=== PATIENT | female | born 1940 | race Caucasian/White ===

== ENCOUNTER → 2016-08-15 | Outpatient (CLI) | payer MEDICARE, OTHER | LOC: MW.CHIM 09:53 | CPT/HCPCS: 93005; 99204 ==

== ENCOUNTER → 2016-08-18 | Outpatient (CLI) | payer MEDICARE, OTHER | LOC: MW.CHIM 08:00 | CPT/HCPCS: G0463 ==

== ENCOUNTER 2017-07-04 07:23 | Day surgery (SDC) | payer MEDICARE, OTHER ==
--- NOTE | 2017-07-03 17:27 | PCM.HPR ---
H & P Addendum review - H & P Addendum Review Date of Original H & P: 06/28/17 Date Reviewed: 07/04/17 Time Reviewed: 09:00 Patient was Examined: No Changes (I reviewed the GAME MODERATOR and tympanogram and discussed with the patient that the only benefits she will obtain from tympanostomy tubes would be:1. relief of extreme ME negative pressure - especially since she will be doing air travel later this week 2. Some improvement in L ear hearing; majority of hearing loss is SNHL. She decided for tubes bilateral)
[2017-07-04] MEDS ORDERED: Midazolam 1 MG/ML 2 ML SDV ONE (07:32)
[2017-07-04] MEDS ORDERED: Ondansetron 4 MG/2 ML SDV ONE (07:32)
[2017-07-04] MEDS ORDERED: Propofol 200 MG/20 ML SDV ONE ×2 (07:32→09:30)
[2017-07-04] MEDS ORDERED: fentaNYL 100 MCG/2 ML SDV ONE (07:32)
--- NOTE | 2017-07-04 08:47 | PCM.PREANE ---
Preanesthetic Assessment - Anesthesia/Transfusion/Family Hx Anesthesia History: Prior Anesthesia Without Reaction Family History of Anesthesia Reaction: No Transfusion History: No Prior Transfusion(s) - Review of Systems General: No Symptoms Pulmonary: No Symptoms Cardiovascular: No Symptoms Gastrointestinal: No Symptoms Neurological: No Symptoms Other: Reports: None - Physical Assessment NPO Status Date: 07/03/17 O2 Sat by Pulse Oximetry: 94 Respiratory Rate: 12 Vital Signs: Last Vital Signs Temp 36.6 C 07/04/17 08:18 Pulse 70 07/04/17 08:18 Resp 12 07/04/17 08:18 BP 110/72 07/04/17 08:18 Pulse Ox 94 L 07/04/17 08:18 Height: 1.5 m Weight: 57.153 kg ASA Class: 2 Mental Status: Alert & Oriented x3 Airway Class: Mallampati = 2 Dentition: Reports: Dentures (upper) ROM/Head Extension: Full Lungs: Clear to Auscultation, Normal Respiratory Effort Cardiovascular: Regular Rhythm - Allergies Allergies/Adverse Reactions: Allergies Allergy/AdvReac Type Severity Reaction Status Date / Time No Known Allergies Allergy Verified 07/02/17 09:45 - Anesthesia Plan Pre-Op Medication Ordered: None - Acknowledgements Anesthesia Type Planned: General Anesthesia Pt an Appropriate Candidate for the Planned Anesthesia: Yes Alternatives and Risks of Anesthesia Discussed w Pt/Guardian: Yes Pt/Guardian Understands and Agrees with Anesthesia Plan: Yes Additional Comments: has pacemaker for unknown etiology (irregular rate per pt). No records on pacemaker in our EMR. pacemaker provisioning analyst called, they are unable to tell me if rate responsive feature was turned on. Will treat wit magnet to put paced into asyncronous mode during surgery. No need for post procedure interrigation. Last battery life check of pacer was last week. 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: Musculoskeletal History: Reports: Fracture Other Musculoskeletal History: hx fx arm and ankle Neurological History: Reports: None Endocrine/Metabolic History: Reports: Hypothyroidism, Osteopenia Oncologic (Cancer) History: Reports: Cervix Dermatologic History: Reports: None - Past Surgical History Head Surgeries/Procedures: Reports: None HEENT Surgical History: Reports: Cataract Surgery Female Surgical History: Reports: Hysterectomy, Salpingo-Oophorectomy, Tubal Ligation - SUBSTANCE USE Smoking Status *Q: Former Smoker Tobacco Use Within Last Twelve Months: No Second Hand Smoke Exposure: No Days Per Week of Alcohol Use: 0 Number of Drinks Per Day: 1 Total Drinks Per Week: 0 Recreational Drug Use History: No - HOME MEDS Home Medications: Home Meds Aspirin [Kirit Chewable Aspirin] 2 tab PO DAILY 03/06/14 [History] Hydrochlorothiazide 1 tab PO DAILY 03/06/14 [History] Levothyroxine Sodium [Synthroid] 150 mcg PO DAILY 03/06/14 [History] Lutein/Minerals/Vit A,C & E [I-Chani] 1 tab PO DAILY 03/06/14 [History] Metoprolol Succinate [Toprol XL 50mg] 25 mg PO DAILY 03/06/14 [History] Multivitamin [Multi-Vitamin Daily] 1 tab PO DAILY 03/06/14 [History] [place]-3/DHA/Epa/Fish Oil [Fish Oil 500 MG Softgel] 1 each PO DAILY 03/06/14 [ History] Potassium Chloride 20 meq PO DAILY 03/06/14 [History] atorvaSTATin [Lipitor] 20 mg PO BEDTIME 03/06/14 [History] Calcium Carbonate [Calcium] 2 tab PO DAILY 07/02/17 [History] Denosumab [Prolia] 1 injection IM ASDIRECTED 07/02/17 [History] - CURRENT (IN HOUSE) MEDS Current Meds: Current Medications Discontinued Medications Fentanyl (Sublimaze) Confirm Administered Dose 100 mcg .ROUTE .STK-MED ONE Stop: 07/04/17 07:33 Midazolam HCl (Versed 1 Mg/Ml) Confirm Administered Dose 2 mg .ROUTE .STK-MED ONE Stop: 07/04/17 07:33 Ondansetron HCl (Zofran) Confirm Administered Dose 4 mg .ROUTE .STK-MED ONE Stop: 07/04/17 07:33 Propofol (Diprivan 20 Ml) Confirm Administered Dose 200 mg .ROUTE .STK-MED ONE Stop: 07/04/17 07:33
--- NOTE | 2017-07-04 09:21 | PCM.OPNOTE ---
- General Post-Op/Procedure Note Condition: Good Free Text/Narrative:: Diagnosis: Otitis media with effusion, eustachian tube dysfunction , hearing loss - Left mixed Procedure: Bilateral Myringotomy with Tympanostomy tubes Surgeon: Amy Chaudhary MD Date of procedure: 07/04/17 Anesthesia: MAC Anesthesiologist: Dolores CROFT Indications: Otitis media with effusion, eustachian tube dysfunction , hearing loss - Left mixed. Patient developed symptoms after a flight. After watchful waiting - symptoms resolved only partially and she continued to have above; especially in light of fact that she is flying again soon, a mutual decision was made to insert tympanostomy tubes. She was counselled that her hearing loss was unlikely to resolve since most component is sensorineural. Findings: Right retracted TM; zohra ME - serous efusion L > R Operation Details: An informed consent for the procedure was obtained from parents. A time out was performed and the patient was brought back to the operating room and laid supine on the operating room table. Anesthesia was administered with a MAC. The left ear was addressed first. Cerumen was cleared from the external auditory canal. An anterior inferior myringotomy incision was made in the pars tensa. Findings are as described above. Middle ear effusion was suctioned and An Leal tympanostomy tube was placed with an alligator forceps. Ciprodex drops were instilled and cotton wool placed in jacob. The right ear was addressed. Cerumen was cleared from the external auditory canal. An anterior inferior myringotomy incision was made in the pars tensa. Findings are as described above. Middle ear effusion was suctioned and An Leal tympanostomy tube was placed with an alligator forceps. Ciprodex drops were instilled and cotton wool placed in jacob. Specimens: None IV fluids: 300 ml Blood products: nil Disposition: PACU for recovery Follow up: In 2 months / PRN
[2017-07-04 10:58] VITALS: BP 109/60
--- NOTE | 2017-07-04 12:39 | PCM48HPAN ---
Post Anesthesia Note - EVALUATION WITHIN 48HRS OF ANESTHETIC Vital Signs in Normal Range: Yes Patient Participated in Evaluation: Yes Respiratory Function Stable: Yes Airway Patent: Yes Cardiovascular Function Stable: Yes Hydration Status Stable: Yes Pain Control Satisfactory: Yes Nausea and Vomiting Control Satisfactory: Yes Mental Status Recovered: Yes
--- NOTE | 2017-07-04 12:39 | PCM.POSTAN ---
POST ANESTHESIA ASSESSMENT - MENTAL STATUS Mental Status: Alert, Oriented - RESPIRATORY Respiratory Status: Respiratory Rate WNL, Airway Patent, O2 Saturation Stable - CARDIOVASCULAR CV Status: Pulse Rate WNL, Blood Pressure Stable - GASTROINTESTINAL GI Status: No Symptoms - POST OP HYDRATION Hydration Status: Adequate & Stable
== END 2017-07-04 11:15 | disposition home or self-care (01) ==
LOC: MW.SDS 07:23
PROVIDERS: ATTEND Otolaryngology
DX: H65.93 Unspecified nonsuppurative otitis media, bilateral (principal); H69.93 Unspecified Eustachian tube disorder, bilateral; H73.899 Other specified disorders of tympanic membrane, unspecified ear; H91.92 Unspecified hearing loss, left ear; I65.29 Occlusion and stenosis of unspecified carotid artery; M50.10 Cervical disc disorder with radiculopathy, unspecified cervical region; M51.36 Other intervertebral disc degeneration, lumbar region; R43.2 Parageusia; E78.00 Pure hypercholesterolemia, unspecified; I10 Essential (primary) hypertension; E03.9 Hypothyroidism, unspecified; M81.0 Age-related osteoporosis without current pathological fracture; Z95.0 Presence of cardiac pacemaker; Z79.899 Other long term (current) drug therapy; Z79.82 Long term (current) use of aspirin; Z87.891 Personal history of nicotine dependence; Z90.710 Acquired absence of both cervix and uterus; Z90.722 Acquired absence of ovaries, bilateral
CPT/HCPCS: 69433; J2250; J2405; J3010; 00126; J2704

== ENCOUNTER 2020-06-04 20:19 | Emergency (ER) | payer MEDICARE, OTHER ==
--- NOTE | 2020-06-04 20:37 | EDM.PDOC ---
ED HPI GENERAL MEDICAL PROBLEM - General Chief Complaint: Upper Extremity Injury/Pain Stated Complaint: FELL, LT WRIST PAIN Time Seen by Provider: 06/04/20 20:24 Source of Information: Reports: Patient, Family History Limitations: Reports: No Limitations - History of Present Illness INITIAL COMMENTS - FREE TEXT/NARRATIVE: This is a very pleasant 79-year-old female with a past medical history of osteopenia, ovarian cancer in remission, status post pacemaker placement, hypertension, hypothyroidism presenting with a left wrist injury. About 30 minutes ago, the patient was bending over to remove her boots when she excellently fell forward, injuring her left wrist. She not strike her head or neck and did not lose consciousness. She presents to the emergency department her daughter complaining of pain and injury to the distal left forearm, no other complaints. No self treatment prior to arrival. Denies any numbness or weakness in the left upper extremity. Past medical history: Reviewed, no additional pertinent history. Surgical history: Reviewed in system, no additional pertinent history. Social history: Reviewed in system, no additional pertinent history. Family history: Reviewed in system, no additional pertinent history. PHYSICAL EXAM Vital signs reviewed. Nursing notes reviewed. Constitutional: Awake, alert, non-distressed. Head: Normocephalic, atraumatic. No raccoon's eyes or reyes sign. Eyes: Pupils 3 mm bilaterally, EOMI, conjunctiva normal, no discharge, no sclera l icterus. Ears, Nose, Throat: External ears and nose normal, moist oral mucosa. Cardiovascular: 2+ left radial pulse, capillary refill less than 2 seconds in the left upper extremity. Pulmonary: normal work of breathing, no accessory muscle use. Abdomen/GI: Soft, nontender, nondistended, no guarding or rigidity, no masses. Musculoskeletal: There is obvious deformity to the left distal left forearm. Integumentary: Appropriate color for ethnicity, warm, dry, no pallor or jaundice, no rash. Neurologic: Alert, answering questions appropriately, normal speech, no facial droop, moving all extremities well. Sensation intact to light touch to radial, median, and ulnar nerve distributions of the left upper extremity. Psychiatric: Appropriate mood and affect, normal thought process. This patient was seen and evaluated during the 2019 SARS-CoV-2 novel coronavirus pandemic period. Community viral transmission is ongoing at time of this encounter and the emergency department is operating under pandemic response procedures. left wrist Pain Score (Numeric/FACES): 2 - Related Data Allergies Allergy/AdvReac Type Severity Reaction Status Date / Time No Known Allergies Allergy Verified 06/04/20 20:35 Home Meds: Home Meds Aspirin [Kirit Chewable Aspirin] 2 tab PO DAILY 03/06/14 [History] Levothyroxine Sodium [Synthroid] 150 mcg PO DAILY 03/06/14 [History] Lutein/Minerals/Vit A,C & E [I-Chani] 1 tab PO DAILY 03/06/14 [History] Metoprolol Succinate [Toprol XL 50mg] 25 mg PO DAILY 03/06/14 [History] Multivitamin [Multi-Vitamin Daily] 1 tab PO DAILY 03/06/14 [History] [place]-3/DHA/Epa/Fish Oil [Fish Oil 500 MG Softgel] 1 each PO DAILY 03/06/14 [History] Potassium Chloride 20 meq PO DAILY 03/06/14 [History] atorvaSTATin [Lipitor] 20 mg PO BEDTIME 03/06/14 [History] hydroCHLOROthiazide [Hydrochlorothiazide] 1 tab PO DAILY 03/06/14 [History] Calcium Carbonate [Calcium] 2 tab PO DAILY 07/02/17 [History] Denosumab [Prolia] 1 injection IM ASDIRECTED 07/02/17 [History] Past Medical History HEENT History: Reports: Other (See Below) Other HEENT History: top denture Cardiovascular History: Reports: High Cholesterol, Hypertension, Pacemaker Gastrointestinal History: Genitourinary History: Reports: None 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: Musculoskeletal History: Reports: Fracture Other Musculoskeletal History: hx fx arm and ankle Neurological History: Reports: None Endocrine/Metabolic History: Reports: Hypothyroidism, Osteopenia Oncologic (Cancer) History: Reports: Cervix Dermatologic History: Reports: None - Past Surgical History Head Surgeries/Procedures: Reports: None HEENT Surgical History: Reports: Cataract Surgery Female Surgical History: Reports: Hysterectomy, Salpingo-Oophorectomy, Tubal Ligation Review of Systems - Review of Systems Review Of Systems: See Below ED EXAM, GENERAL - Physical Exam Exam: See Below ED TRAUMA EXTREMITY PROCEDURES - Joint Reduction Left Wrist Sedation: Hematoma/Fracture Block Local Anesthesia - Lidocaine (Xylocaine): 1% Plain Local Anesthetic Volume: Other (10 mL) Pre-Procedure NV Status: Normal Post-Procedure NV Status: Normal Technique: Traction/Counter Traction Number of Attempts: 2 Post-Reduction Imaging: Acceptably Reduced Joint Reduction Complications: No - Splinting Left Upper Extremity Splint Site: Left wrist Pre-Procedure NV Status: Normal Post-Procedure NV Status: Normal Splint Material: Fiberglass, Sling Splint Design: Sugar Tong Applied & Form Fitted By: Provider Provider Post-Splint Application NV Check: NV Status Normal, Good Position Complications: No Course - Vital Signs Text/Narrative:: 79-year-old female presenting with deformity of the left wrist after a fall. No other complaints or injuries. Does report to drinking alcohol earlier but is alert and oriented appropriately and does not seem clinically intoxicated. Neurovascularly intact in the left upper extremity which is obviously deformed. She declined pain medications. I did perform a hematoma block with 10 mL of 1% lidocaine and obtained x-rays of left wrist showed a comminuted, intra- articular, dorsally mutilated fracture of the distal radius. 9:39 PM: Patient underwent closed reduction of the left distal radius, placed in a sugar tong splint. Postreduction x-rays show significantly improved alignment and decreased angulation. Patient neurovascularly intact post reduction/post splinting. She is stable to discharge home and will be referred for outpatient orthopedic surgery clinic follow-up in 1 to 2 weeks. We recommended [id number] extra strength acetaminophen and ibuprofen as needed for pain. We gave splint care precautions and ED return precautions. Plan: Patient is stable to discharge home with outpatient orthopedic surgery clinic follow-up. Strict emergency department return precautions were provided, patient indicated understanding. All questions were answered prior to departure. I also discussed the discharge plan with patient's daughter. Discharged in good condition. Last Recorded V/S: Last Vital Signs Temp 35.9 C L 06/04/20 20:31 Pulse 70 06/04/20 21:40 Resp 16 06/04/20 21:40 BP 123/48 L 06/04/20 21:40 Pulse Ox 97 06/04/20 21:40 - Orders/Labs/Meds Orders: Active Orders 24 hr Category Date Time Status NPO Now [Nothing per Oral Now Diet] [DIET] Diet 06/05/20 Breakfast Active Meds: Medications Discontinued Medications Generic Name Dose Route Start Last Admin Trade Name Shwetha PRN Reason Stop Dose Admin Lidocaine HCl 5 ml 06/04/20 20:38 06/04/20 20:43 Xylocaine-Mpf 1% INJECT 06/04/20 20:39 5 ml ONETIME ONE Administration Lidocaine HCl 5 ml 06/04/20 20:39 06/04/20 20:43 Xylocaine-Mpf 1% INJECT 06/04/20 20:40 5 ml ONETIME ONE Administration Lidocaine HCl Confirm 06/04/20 20:41 06/04/20 20:45 Xylocaine-Mpf 1% Administered 06/04/20 20:42 Not Given Dose 5 ml .ROUTE .STK-MED ONE Departure - Departure Time of Disposition: 21:51 Disposition: Home, Self-Care 01 Condition: Good Clinical Impression: Fracture of left distal radius Qualifiers: Encounter type: initial encounter Fracture type: closed Fracture morphology: other intra-articular Qualified Code(s): S52.572A - Other intraarticular fracture of lower end of left radius, initial encounter for closed fracture - Discharge Information *PRESCRIPTION DRUG MONITORING PROGRAM REVIEWED*: Not Applicable *COPY OF PRESCRIPTION DRUG MONITORING REPORT IN PATIENT NIKITA: Not Applicable Instructions: Radial Fracture, How To Use a Sling, [id number], Closed Reduction for Wrist or Forearm, Care After, Cast or Splint Care, Adult Referrals: [facility] - Orthopaedics [Provider Group] - 1 Week (For follow-up of left distal radius fracture) Forms: ED Department Discharge Additional Instructions: You were seen in the emergency department for a left wrist injury. X-rays demonstrate a fracture of your left distal radius. This was placed back in better position and a splint was applied. You will need to follow-up with the orthopedic surgery clinic in 1 to 2 weeks for reevaluation. You will likely have repeat x-rays performed and the orthopedic surgeon may change your splint to a cast and may discuss surgical repair if he thinks it is necessary. I recommend [id number] extra strength acetaminophen (1000 mg every 6 hours ) and ibuprofen (400 mg every 6 hours) to help treat your pain. Your splint is not waterproof. If you are going to bathe or shower or it is raining or snowing outside you need to cover it with a plastic bag to keep it dry. If it gets wet it will dissolve and you will need to have the splint replaced. Warning signs to come back to the ER include: Worsening pain, numbness or weakness of the left upper extremity, if the skin of your fingers or hands turns pale, purple, or blue then you should loosen the bandaging and immediately come back to the emergency department for reevaluation. Please return the emergency department immediately if your symptoms worsen or if you feel worse. Thank you for choosing the [facility] emergency department in [place] for your medical needs today. It was a pleasure caring for you. The following information is given to patients seen in the emergency department who are being discharged. This information is to outline your options for follow-up care. We provide all patients seen in our emergency department with a follow-up referral. The need for follow-up, as well as the timing and circumstances, are variable depending upon the specifics of your emergency department visit. If you don't have a primary care physician on staff, we will provide you with a referral. We always advise you to contact your personal physician following an emergency department visit to inform them of the circumstance of the visit and for follow-up with them and/or the need for any referrals to a consulting specialist. The emergency department will also refer you to a specialist when appropriate. This referral assures that you have the opportunity for follow-up care with a specialist. All of these measure are taken in an effort to provide you with optimal care, which includes your follow-up. Under all circumstances we always encourage you to contact your private physician who remains a resource for coordinating your care. When calling for follow-up care, please make the office aware that this follow-up is from your recent emergency room visit. If for any reason you are refused follow-up, please contact the [facility] Emergency Department at and asked to speak to the emergency department charge nurse. If you do not have a primary care physician that is caring for you, you can contact these clinics below to set up an appointment to establish care: [facility] - Primary Care [address] [place] [address] [facility] [address] [place] [address] Sepsis Event Note (ED) - Focused Exam Vital Signs: Vital Signs Temp Pulse Resp BP Pulse Ox 06/04/20 21:40 70 16 123/48 L 97 06/04/20 20:31 35.9 C L 70 16 132/61 93 L - My Orders Last 24 Hours: My Active Orders 06/05/20 Breakfast NPO Now [Nothing per Oral Now Diet] [DIET] - Assessment/Plan Last 24 Hours: My Active Orders 06/05/20 Breakfast NPO Now [Nothing per Oral Now Diet] [DIET]
--- NOTE | 2020-06-04 20:57 | CR ---
Indication: Fall. Wrist deformity. Technique: Left wrist three views. Comparison: None. Findings: There is a comminuted, impacted, intra-articular, dorsally angulated and displaced fracture of the distal radius. No additional acute osseous abnormality demonstrated. Bone demineralization and degenerative changes. Soft tissue swelling. No radiopaque foreign body. Impression: Comminuted, intra-articular and dorsally angulated fracture of the distal radius. Dictated by Evan Bernstein MD @ 06/04/2020 8:56:06 PM Dictated by: Evan Bernstein MD @ 06/04/2020 20:56:16 (Electronically Signed)
--- NOTE | 2020-06-04 21:59 | CR ---
Indication: Fracture, post reduction Technique: Two views of the left wrist Comparison: Left wrist radiographs 06/04/2020 at 8:35 p.m. Findings/Impression: Status post reduction and splinting of distal radius fracture. Alignment is improved. Dictated by Armando Sumner MD @ Jun 04 2020 9:57PM Signed by Dr. Armando Sumner @ Jun 04 2020 9:58PM
[2020-06-04 22:09] VITALS: BP 127/70; PULSE 96
== END 2020-06-04 22:06 | disposition home or self-care (01) ==
LOC: MW.ED 20:19
DX: S52.572A Other intraarticular fracture of lower end of left radius, initial encounter for closed fracture (principal); I10 Essential (primary) hypertension; E78.00 Pure hypercholesterolemia, unspecified; E03.9 Hypothyroidism, unspecified; Z79.82 Long term (current) use of aspirin; Z79.899 Other long term (current) drug therapy; W19.XXXA Unspecified fall, initial encounter
CPT/HCPCS: 25605; 73100; 73110; 99283; J2001; 29125